=== PATIENT | male | born 1980 | race Caucasian/White ===

== ENCOUNTER 2016-12-03 10:22 | Emergency (ER) | payer MEDICAID, OTHER ==
[~2016-12-03] VITALS: Ht 175.3 cm; Wt 136.1 kg
[2016-12-03 10:27] VITALS: BP_SYST 113
--- NOTE | 2016-12-03 10:30 | NUR ---
Placed to ER waiting room in stable condition.
--- NOTE | 2016-12-03 10:40 | NUR ---
Pt complains of dark red blood in the stool for the past 2 weeks, denies fever, n/v or diarrhea. Pt complains of swelling to bilateral lower legs for the past 2 months with generalized weakness. Pt ambulated into the ER with no noted difficulty. No other injuries/complaints per pt or noted.
--- NOTE | 2016-12-03 10:42 | NUR ---
Patient to ER bed 04 to gown for evaluation. Side rails up. Report given to Nain.
--- NOTE | 2016-12-03 10:46 | NUR ---
Dr. Luis at bedside for evaluation
--- NOTE | 2016-12-03 11:30 | NUR ---
Pt is resting comfortably in bed with no noted distress or discomfort.
[2016-12-03 11:32] LABS: BASOPHILS # (AUTO) 0.1 K/uL (0.0-0.2); BASOPHILS % (AUTO) 1.3 % (0.0-2.0); EOSINOPHILS # (AUTO) 0.1 K/uL (0.0-0.4); EOSINOPHILS % (AUTO) 1.6 % (0.0-4.0); HEMATOCRIT 45.3 % (36-54); HEMOGLOBIN 14.6 g/dL (14.0-18.0); LYMPHOCYTES # (AUTO) 2.6 K/uL (1.0-5.5); MEAN CORPUSCULAR HEMOGLOBIN 30 pg (27-31); MEAN CORPUSCULAR HGB CONC 32 % (32-36); MEAN CORPUSCULAR VOLUME 94 fL (79.0-98.0); MONOCYTES # (AUTO) 0.6 K/uL (0.0-1.0); MONOCYTES % (AUTO) 8.1 % (1.7-9.3); NEUTROPHILS # (AUTO) 3.9 K/uL (1.8-7.7); PLATELET COUNT (AUTO) 218 K/uL (130-430); RED BLOOD CELL COUNT(AUTO) 4.83 MIL/uL (4.2-6.2); RED CELL DISTRIBUTION WIDTH 13.6 % (9.0-15.0); WHITE BLOOD COUNT (AUTO) 7.3 K/uL (4.8-10.8)
[2016-12-03 11:36] LABS: CALCIUM 9.2 mg/dL (8.4-11.0); CREATININE 1.77 mg/dL (0.55-1.30); POTASSIUM 3.8 mmol/L (3.5-5.1)
[2016-12-03 11:41] LABS: ALBUMIN 4.4 g/dL (3.4-4.8); TOTAL BILIRUBIN 0.4 mg/dL (0.0-1.0)
[2016-12-03 12:16] VITALS: BP_SYST 115
--- NOTE | 2016-12-03 12:16 | NUR ---
Patient given written and verbal discharge instructions and verbalizes understanding. ER MD discussed with patient the results and treatment provided. Patient in stable condition. ID arm band removed. Rx of lasix and anusol given. Patient educated on pain management and to follow up with PMD. Pain Scale 0. Opportunity for questions provided and answered.
== END 2016-12-03 12:16 | disposition home or self-care (01) ==
LOC: SED 10:22
DX: K62.5 Hemorrhage of anus and rectum (principal); R22.43 Localized swelling, mass and lump, lower limb, bilateral
CPT/HCPCS: 36415; 80053; 85025; 99284

== ENCOUNTER 2017-09-23 15:36 | Emergency (ER) | payer OTHER, MEDICAID ==
[~2017-09-23] VITALS: Ht 177.8 cm; Wt 136.1 kg
[2017-09-23 15:52] VITALS: BP_SYST 106
--- NOTE | 2017-09-23 15:52 | NUR ---
Placed in room 08 . Placed on nuclear monitoring technician, blood pressure machine and pulse oximeter. To gown for exam. Side rails up. Report given to LALY GLOVER
--- NOTE | 2017-09-23 15:54 | NUR ---
Patient brought in by . Patient states that approximately 9 am this morning he was carrying a heavy cabinet at work on his right arm when he passed out for a couple of seconds, losing consciouness. Patient states that he feels fuzzy and weak. Pain 6/10. Patient is AAO x 4. Respirations are 16 bpm non labored. No other complaints/injuries per patient or as noted. will continue to monitor.
--- NOTE | 2017-09-23 15:55 | NUR ---
ER Dr. Vizcarra at bedside examining patient.
[2017-09-23] MEDS ORDERED: NACL 0.9% 1,000 ML IV ONE (16:00)
--- NOTE | 2017-09-23 16:00 | NUR ---
Urine specimen collected and sent to lab or analyzing
--- NOTE | 2017-09-23 16:07 | NUR ---
# 20 gauge angiocath placed to Right AC. Use of asceptic technique. Opsite placed over site. Blood return noted. Blood for lab drawn from site. Flushed with 10 cc of normal saline. No evidence of infiltration noted. Patient tolerated well.
--- NOTE | 2017-09-23 16:09 | NUR ---
EKG performed at by BELEN Becerra. Physician given copy of EKG for review.
--- NOTE | 2017-09-23 16:11 | NUR ---
Medicated per MD orders. IVF infusing with no s/s of infiltration at this time. Will cont to monitor
--- NOTE | 2017-09-23 16:14 | NUR ---
Patient transported to radiology via Wheelchair, accompanied by Reji Acuna
[2017-09-23] MEDS ORDERED: KETOROLAC TROMETHAMINE 15 MG VIAL IVP ONE (16:15)
--- NOTE | 2017-09-23 16:27 | NUR ---
Patient returned from Radiology. Placed back on environmental monitoring specialist. VSS. Side rails up. Patient voiced no complaints.
[2017-09-23 16:30] LABS: BASOPHILS # (AUTO) 0.1 K/uL (0.0-0.2); BASOPHILS % (AUTO) 0.9 % (0.0-2.0); EOSINOPHILS # (AUTO) 0.1 K/uL (0.0-0.4); EOSINOPHILS % (AUTO) 1.5 % (0.0-4.0); HEMATOCRIT 41.5 % (36-54); HEMOGLOBIN 13.6 g/dL (14.0-18.0); LYMPHOCYTES # (AUTO) 2.2 K/uL (1.0-5.5); LYMPHOCYTES % (AUTO) 33.5 % (20.5-51.5); MEAN CORPUSCULAR HEMOGLOBIN 31 pg (27-31); MEAN CORPUSCULAR HGB CONC 33 % (32-36); MEAN CORPUSCULAR VOLUME 95 fL (79.0-98.0); MONOCYTES # (AUTO) 0.7 K/uL (0.0-1.0); MONOCYTES % (AUTO) 10.4 % (1.7-9.3); NEUTROPHILS # (AUTO) 3.6 K/uL (1.8-7.7); NEUTROPHILS % (AUTO) 53.7 % (40.0-70.0); PLATELET COUNT (AUTO) 204 K/uL (130-430); RED BLOOD CELL COUNT(AUTO) 4.37 MIL/uL (4.2-6.2); RED CELL DISTRIBUTION WIDTH 13.8 % (9.0-15.0); WHITE BLOOD COUNT (AUTO) 6.7 K/uL (4.8-10.8)
[2017-09-23 16:34] LABS: ANION GAP 8 (5-15); CHLORIDE 101 mmol/L (98-107); GLUCOSE 86 mg/dL (70-99); POTASSIUM 3.8 mmol/L (3.5-5.1); SODIUM SERUM 137 mmol/L (136-145); UREA NITROGEN, BLOOD 22 mg/dL (8-21)
[2017-09-23 16:35] LABS: GFR AFRICAN AMERICAN 62 mL/min (>90)
--- NOTE | 2017-09-23 16:36 | NUR ---
[facility] Report filed and faxed to [phone].
[2017-09-23 16:39] LABS: ALANINE AMINOTRANSFERASE 44 U/L (12-78); ALBUMIN 4.5 g/dL (3.4-4.8); ASPARTATE AMINOTRANSFERASE 67 U/L (10-37); TOTAL BILIRUBIN 0.4 mg/dL (0.0-1.0)
[2017-09-23 16:40] LABS: ACETAMINOPHEN < 1 ug/mL (1-30); ALCOHOL, BLOOD < 3 mg/dL (<10)
[2017-09-23 16:47] LABS: BARBITURATE, URINE NEGATIVE (NEG <=200); BENZODIAZEPINE, URINE NEGATIVE (NEG <=150); CANNABINOID, URINE NEGATIVE (NEG <=50); COCAINE, URINE NEGATIVE (NEG <=150); METHAMPHETAMINES SCREEN,URINE NEGATIVE (NEG <=500); OPIATE, URINE NEGATIVE (NEG <=100); PHENCYCLIDINE SCREEN,URINE NEGATIVE (NEG <=25); UR TRICYCLIC ANTIDEPRESSANTS NEGATIVE (NEG <=300); URINE AMPHETAMINE NEGATIVE (NEG <=500); URINE METHADONE NEGATIVE (NEG <=200); URINE OXYCODONE SCREEN NEGATIVE (NEG <=100); URINE PROPOXYPHENE SCREEN NEGATIVE (NEG <=300)
--- NOTE | 2017-09-23 17:29 | NUR ---
ER Dr. Vizcarra at bedside examining patient.
[2017-09-23 17:37] VITALS: BP_SYST 114
--- NOTE | 2017-09-23 17:37 | NUR ---
Patient given written and verbal discharge instructions and verbalizes understanding. ER MD discussed with patient the results and treatment provided. Patient in stable condition. ID arm band removed. IV catheter removed intact and dressing applied, no active bleeding. Rx of Motrin given. Patient educated on pain management and to follow up with PMD in 2-3 days. Pain Scale 0/10 Opportunity for questions provided and answered. Medication side effect fact sheet provided.
== END 2017-09-23 17:37 | disposition home or self-care (01) ==
LOC: SED 15:36
DX: R55 Syncope and collapse (principal); R53.83 Other fatigue; M79.601 Pain in right arm
CPT/HCPCS: 36415; 70450; 80053; 80307; 85025; 93005; 96361; 96374; 99285; G0480; G0481; G0482; J1885; J7030

== ENCOUNTER 2019-06-14 13:23 | Emergency (ER) | payer BC, MEDICAID, OTHER ==
[~2019-06-14] VITALS: Ht 177.8 cm; Wt 136.1 kg
--- NOTE | 2019-06-14 13:23 | NUR ---
BROUGHT BACK TO BED #7 AND TRIAGED. REPORT GIVEN TO TOÑO
[2019-06-14 13:25] VITALS: BP_SYST 133
--- NOTE | 2019-06-14 13:25 | NUR ---
Patient arrived in the ED c/o lower abdominal pain with nausea and diarrhea, lightheadedness, and UTI symptoms that started today. Denied any chest pain or shortness of breath. Denied any fevers, vomiting, or chills. Patient is alert and oriented x4, respirations even and unlabored, speaking in full sentences, ambulating with a steady gait. VSS, pain level 5/10. Informed of wait time. Instructed to notify ED staff for any changes in condition or worsening of symptoms. Patient verbalized understanding.
--- NOTE | 2019-06-14 14:05 | NUR ---
ER Dr. Vizcarra at bedside examining patient.
--- NOTE | 2019-06-14 14:26 | NUR ---
Patient given written and verbal discharge instructions and verbalizes understanding. ER MD discussed with patient the results and treatment provided. Patient in stable condition. ID arm band removed. Rx of Lomotil, protonix and zofran given. Patient educated on pain management and to follow up with PMD. Pain Scale 0/10. Opportunity for questions provided and answered. Medication side effect fact sheet provided.
[2019-06-14 14:29] VITALS: BP_SYST 133
== END 2019-06-14 14:26 | disposition home or self-care (01) ==
LOC: SED 13:23
DX: A08.4 Viral intestinal infection, unspecified (principal); E03.9 Hypothyroidism, unspecified; Z95.0 Presence of cardiac pacemaker
CPT/HCPCS: 99283

== ENCOUNTER 2019-09-18 10:55 | Emergency (ER) | payer BC ==
[~2019-09-18] VITALS: Ht 177.8 cm; Wt 136.1 kg
[2019-09-18 11:05] VITALS: BP_SYST 145
[2019-09-18] MEDS ORDERED: NACL 0.9% 1,000 ML IV ONE (11:16)
[2019-09-18] MEDS ORDERED: MORPHINE 4 MG/ML INJ. SYRINGE IVP ONE ×2 (11:18→12:15)
[2019-09-18] MEDS ORDERED: KETOROLAC TROMETHAMINE 30 MG VIAL IVP ONE (11:18)
[2019-09-18 11:37] LABS: BASOPHILS # (AUTO) 0.1 K/uL (0.0-0.2); BASOPHILS % (AUTO) 1.1 % (0.0-2.0); EOSINOPHILS # (AUTO) 0.1 K/uL (0.0-0.4); EOSINOPHILS % (AUTO) 0.9 % (0.0-4.0); HEMATOCRIT 50.9 % (36-54); LYMPHOCYTES # (AUTO) 2.8 K/uL (1.0-5.5); LYMPHOCYTES % (AUTO) 33.1 % (20.5-51.5); MEAN CORPUSCULAR HEMOGLOBIN 31 pg (27-31); MEAN CORPUSCULAR HGB CONC 33 % (32-36); MEAN CORPUSCULAR VOLUME 93 fL (79.0-98.0); MONOCYTES # (AUTO) 0.8 K/uL (0.0-1.0); MONOCYTES % (AUTO) 9.4 % (1.7-9.3); NEUTROPHILS # (AUTO) 4.7 K/uL (1.8-7.7); NEUTROPHILS % (AUTO) 55.5 % (40.0-70.0); PLATELET COUNT (AUTO) 170 K/uL (130-430); RED CELL DISTRIBUTION WIDTH 13.9 % (9.0-15.0); WHITE BLOOD COUNT (AUTO) 8.4 K/uL (4.8-10.8)
[2019-09-18 11:49] LABS: CALCIUM 8.1 mg/dL (8.4-11.0); CREATININE 1.04 mg/dL (0.55-1.30)
[2019-09-18 11:54] LABS: ALBUMIN 3.9 g/dL (3.4-4.8); TOTAL BILIRUBIN 0.4 mg/dL (0.0-1.0)
[2019-09-18 12:10] LABS: BILIRUBIN,URINE NEGATIVE (NEGATIVE); BLOOD, URINE NEGATIVE (NEGATIVE); CLARITY/URINE CLEAR (CLEAR); COLOR,URINE YELLOW (YELLOW); GLUCOSE,URINE NEGATIVE (NEGATIVE); KETONES,URINE NEGATIVE (NEGATIVE); LEUKOCYTE ESTERASE ,URINE NEGATIVE (NEGATIVE); NITRITE, URINE NEGATIVE (NEGATIVE); PROTEIN URINE NEGATIVE (NEGATIVE); UROBILINOGEN,URINE 0.2 (0.2-1.0)
[2019-09-18 13:55] VITALS: BP_SYST 144
== END 2019-09-18 13:55 | disposition home or self-care (01) ==
LOC: SED 10:55
DX: K59.00 Constipation, unspecified (principal); I50.9 Heart failure, unspecified; E03.9 Hypothyroidism, unspecified
CPT/HCPCS: 36415; 74176; 80053; 81003; 85025; 96374; 96375; 96376; 99284; J1885; J2270; J7030

== ENCOUNTER 2021-12-10 10:34 | Emergency (ER) | payer BC ==
[~2021-12-10] VITALS: Ht 177.8 cm; Wt 145.1 kg
[2021-12-10 10:44] VITALS: BP_SYST 133
--- NOTE | 2021-12-10 10:48 | NUR ---
MD GROVER IN TRIAGE FOR MSE.
--- NOTE | 2021-12-10 10:50 | NUR ---
pt brought in by self from home with CC of lower back pain r/t injury sustained earlier in the week per pt. aaox4, respirations even and unlabored, denies nausea and vomiting, no urinary symptoms, pulses WNL, cap refill <3secs, skin warm and intact. c/o pain level 10/10, worse with movement, localized to area of injury. no past medical hx, reports OTC interventions not effective.
[2021-12-10] MEDS ORDERED: KETOROLAC TROMETHAMINE 30 MG VIAL IM ONE (11:00)
[2021-12-10] MEDS ORDERED: ONDANSETRON 4 MG ODT TAB PO ONE (11:00)
[2021-12-10] MEDS ORDERED: MORPHINE 4 MG INJ. 4 MG/ML VIAL IM ONE (11:00)
[2021-12-10] MEDS ORDERED: HYDR-3917 PO ×5 (11:02→12:48)
[2021-12-10] MEDS ORDERED: ONDA-8 TL (11:02)
[2021-12-10 11:45] VITALS: BP_SYST 119
--- NOTE | 2021-12-10 12:29 | NUR ---
Patient given written and verbal discharge instructions and verbalizes understanding. ER MD discussed with patient the results and treatment provided. Patient in stable condition. ID arm band removed. IV catheter removed intact and dressing applied, no active bleeding. Rx of [place] and Zofran given. Patient educated on pain management and to follow up with PMD. Opportunity for questions provided and answered. Medication side effect fact sheet provided.
== END 2021-12-10 12:29 | disposition home or self-care (01) ==
LOC: SED 10:34
DX: M54.50 Low back pain, unspecified (principal); Z79.899 Other long term (current) drug therapy
CPT/HCPCS: 99284; 96372; Q0162; J1885; J2270

== ENCOUNTER 2023-01-06 12:49 | Emergency (ER) | payer BC, OTHER ==
[~2023-01-06] VITALS: Ht 175.3 cm; Wt 154.2 kg
[~2023-01-06 12:49] MED LIST: HYDR-3917 PO; ONDA-8 TL
[2023-01-06 12:55] VITALS: BP_SYST 159; PULSE 98; RESP 16; TEMP 98; O2SAT 96
[2023-01-06] MEDS ORDERED: KETOROLAC TROMETHAMINE 30 MG VIAL IVP ONE (13:30)
[2023-01-06 13:59] LABS: BASOPHILS # (AUTO) 0.1 K/uL (0.0-0.2); EOSINOPHILS # (AUTO) 0.1 K/uL (0.0-0.4); EOSINOPHILS % (AUTO) 0.9 % (0.0-4.0); HEMOGLOBIN 17.2 g/dL (14.0-18.0); LYMPHOCYTES # (AUTO) 2.5 K/uL (1.0-5.5); LYMPHOCYTES % (AUTO) 30.3 % (20.5-51.5); MEAN CORPUSCULAR HEMOGLOBIN 31 pg (27-31); MEAN CORPUSCULAR HGB CONC 34 % (32-36); MEAN CORPUSCULAR VOLUME 91 fL (79.0-98.0); MONOCYTES # (AUTO) 0.7 K/uL (0.0-1.0); MONOCYTES % (AUTO) 8.8 % (1.7-9.3); NEUTROPHILS # (AUTO) 4.9 K/uL (1.8-7.7); PLATELET COUNT (AUTO) 208 K/uL (130-430); RED BLOOD CELL COUNT(AUTO) 5.63 MIL/uL (4.2-6.2); WHITE BLOOD COUNT (AUTO) 8.2 K/uL (4.8-10.8)
[2023-01-06 14:09] LABS: ANION GAP 10 (5-15); CALCIUM 7.8 mg/dL (8.4-11.0); CARBON DIOXIDE 26 mmol/L (23-29); CHLORIDE 102 mmol/L (98-107); CREATININE 1.22 mg/dL (0.55-1.30); GFR AFRICAN AMERICAN 83 mL/min (>90); GLUCOSE 92 mg/dL (74-106); POTASSIUM 4.1 mmol/L (3.5-5.1); SODIUM SERUM 138 mmol/L (136-145); UREA NITROGEN, BLOOD 13 mg/dL (8-21)
[2023-01-06 14:17] LABS: ALANINE AMINOTRANSFERASE 26 U/L (12-78); ALBUMIN 3.8 g/dL (3.4-4.8); ASPARTATE AMINOTRANSFERASE 22 U/L (10-37); TOTAL BILIRUBIN 0.6 mg/dL (0.0-1.0); TOTAL PROTEIN, SERUM 7.6 g/dL (6.4-8.3)
[2023-01-06 14:18] LABS: GFR NON AFRICAN-AMERICAN 69 mL/min (>90)
[2023-01-06] MEDS ORDERED: HYDROcodone/ACETAMIN 10-325 MG TAB PO ONE (14:30)
[2023-01-06 15:08] LABS: URIC ACID 11.7 mg/dL (2.4-7.0)
[2023-01-06] MEDS ORDERED: HYDR-3927 PO (15:59)
[2023-01-06 16:19] VITALS: BP_SYST 142; PULSE 96; RESP 18; TEMP 98; O2SAT 96
== END 2023-01-06 16:11 | disposition home or self-care (01) ==
LOC: SED 12:49
DX: G89.29 Other chronic pain (principal); M79.672 Pain in left foot; Z79.899 Other long term (current) drug therapy
CPT/HCPCS: 99285; 96374; 71045; 80053; 83880; 84550; 85025; 85651; 84484; 36415; 93005; 73630; 82397; J1885